=== PATIENT | male | born 1955 | race Caucasian/White ===

== ENCOUNTER 2018-05-23 03:01 | Emergency (ER) | payer OTHER ==
[2018-05-23] MEDS ORDERED: Lidocaine 2% VISCOUS* 15 ML UDC PO ONE (03:32)
[2018-05-23] MEDS ORDERED: Al Hydrox/Mg Hydrox/Simet LIQ* 30 ML UDC PO ONE (03:32)
--- NOTE | 2018-05-23 03:47 | ED ---
HPI Chest Pain - HPI Summary HPI Summary: This patient is a 62 year old M presenting to [facility] accompanied by with a chief complaint of a constant stabbing chest pain in since 16:30 on 05/22/2018. The patient rates the pain 3/10 in severity. Symptoms aggravated by deep breaths and certain positions he lays down in. Patient says that he is active but I don t exercise. He reports no PMHx and does not smoke. - History of Current Complaint Chief Complaint: EDChestWallPain Time Seen by Provider: 05/23/18 03:08 Hx Obtained From: Patient Timing: Constant Initial Severity: Moderate Current Severity: Moderate Pain Intensity: 3 Pain Scale Used: 0-10 Numeric Character: Sharp/Stabbing Aggravating Factor(s): Position - Cetain positions when he's lying down, Deep Breaths Associated Signs and Symptoms: Positive: Chest Pain - Stabbing CP - Allergy/Home Medications Allergies/Adverse Reactions: Allergies Allergy/AdvReac Type Severity Reaction Status Date / Time No Known Allergies Allergy Verified 05/23/18 03:12 Home Medications: Home Medications NK [No Home Medications Reported] 05/23/18 [History Confirmed 05/23/18] PMH/Surg Hx/FS Hx/Imm Hx Endocrine/Hematology History: Denies: Hx Diabetes Cardiovascular History: Denies: Hx Cardiac Arrest Infectious Disease History: No Infectious Disease History: Denies: Traveled Outside the [place] in Last 30 Days - Family History Known Family History: Positive: Cardiac Disease, Diabetes - Social History Occupation: Employed Full-time Lives: With Family Alcohol Use: None Substance Use Type: Reports: None Smoking Status (MU): Never Smoked Tobacco Review of Systems Negative: Fever Positive: Chest Pain - Stabbing CP aggravated by deep breaths and certain positions he lays down in All Other Systems Reviewed And Are Negative: Yes Physical Exam - Summary Physical Exam Summary: VITAL SIGNS: Reviewed. GENERAL: Patient is a well-developed and nourished MALE who is lying comfortable in the stretcher. Patient is not in any acute respiratory distress. HEAD AND FACE: No signs of trauma. No ecchymosis, hematomas or skull depressions. No sinus tenderness. EYES: PERRLA, EOMI x 2, No injected conjunctiva, no nystagmus. EARS: Hearing grossly intact. Ear canals and tympanic membranes are within normal limits. MOUTH: Oropharynx within normal limits. NECK: Supple, trachea is midline, no adenopathy, no JVD, no carotid bruit, no c- spine tenderness, neck with full ROM. CHEST: Symmetric, no tenderness at palpation LUNGS: Clear to auscultation bilaterally. No wheezing or crackles. CVS: Regular rate and rhythm, S1 and S2 present, no murmurs or gallops appreciated. ABDOMEN: Soft, non-tender. No signs of distention. No rebound no guarding, and no masses palpated. Bowel sounds are normal. EXTREMITIES: FROM in all major joints, no edema, no cyanosis or clubbing. NEURO: Alert and oriented x 3. No acute neurological deficits. Speech is normal and follows commands. SKIN: Dry and warm Triage Information Reviewed: Yes Vital Signs On Initial Exam: Initial Vitals Temp Pulse Resp BP Pulse Ox 96.9 F 75 16 145/81 99 05/23/18 03:04 05/23/18 03:04 05/23/18 03:04 05/23/18 03:04 05/23/18 03:04 Vital Signs Reviewed: Yes Diagnostics - Vital Signs Vital Signs Temp Pulse Resp BP Pulse Ox 05/23/18 03:32 70 13 96 05/23/18 03:20 73 13 130/90 96 05/23/18 03:04 96.9 F 75 16 145/81 99 - Laboratory Result Diagrams: 05/23/18 03:45 05/23/18 03:45 Lab Statement: Any lab studies that have been ordered have been reviewed, and results considered in the medical decision making process. - Radiology Chest X-Ray Radiology Interpretation Completed By: ED Physician - 05:23. No acute process. Pending official report. - EKG No standard instances Cardiac Rate: NL - 71 BPM EKG Rhythm: Sinus Rhythm EKG Interpretation: Normal axis. Normal interval. No ischemic changes. J point elevation. Chest Pain Course/Dx - Course Assessment/Plan: This patient is a 62 year old M presenting to [facility] accompanied by with a chief complaint of a constant stabbing chest pain in since 16:30 on 05/22/2018. The patient rates the pain 3/10 in severity. Symptoms aggravated by deep breaths and certain positions he lays down in. Patient says that he is active but I dont exercise. He reports no PMHx and does not smoke. Patient heart score is 1. Normal EKG. If the second troponin is negative, patient can be discharged. Patient is beings signed out by Dr. Laura to Dr. Greenwood during a shift change, pending the second troponin. - Diagnoses Provider Diagnoses: Chest pain Discharge - Sign-Out/Discharge Documenting (check all that apply): Sign-Out Patient Signing out patient TO: Kevyn Greenwood - Pending second Troponin - Discharge Plan Condition: Stable Disposition: HOME Patient Education Materials: Chest Pain (ED) Referrals: Jr Fournier MD [Primary Care Provider] - 3 Days Additional Instructions: FOLLOW UP WITH YOUR PRIMARY CARE PROVIDER WITHIN ONE WEEK FOR HIGH BLOOD PRESSURE NOTED TODAY. RETURN TO THE ED FOR ANY WORSENING OR NEW SYMPTOMS. - Billing Disposition and Condition Condition: STABLE Disposition: Home - Attestation Statements Document Initiated by Bobbi: Yes Documenting Scribe: Radames Hernandez Provider For Whom Marquiseibe is Documenting (Include Credential): Sully Laura MD Scribe Attestation: Radames Del Rio, scribed for Sully Laura MD on 05/23/18 at 0806. Scribe Documentation Reviewed: Yes Provider Attestation: The documentation as recorded by the Radames nicholas accurately reflects the service I personally performed and the decisions made by me, Sully Laura MD
[2018-05-23 03:55] LABS: ABS Basophils 0 10^3/ul (0-0.2); ABS Eosinophils 0.3 10^3/ul (0-0.6); ABS Lymphocytes 1.2 10^3/ul (1.0-4.8); ABS Neutrophils 3.9 10^3/ul (1.5-7.7); ABS Nucleated RBC 0 10^3/ul; Eosinophil % 4.5 % (0-6); Hematocrit 42 % (42-52); Hemoglobin 14.5 g/dl (14.0-18.0); Lymphocyte % 18.9 % (25-47); Mean Corpuscular HGB Conc 35 g/dl (31-36); Mean Corpuscular Hemoglobin 32 pg (27-31); Mean Corpuscular Volume 92 fL (80-94); Mean Platelet Volume 9.9 um3 (7.4-10.4); Nucleated Red Blood Cells % 0.1; Platelet Count 199 10^3/ul (150-450); Red Blood Count 4.54 10^6/ul (4.00-5.40); Red Cell Distribution Width 13 % (10.5-15); White Blood Count 6.5 10^3/ul (3.5-10.8)
[2018-05-23 04:03] LABS: INR 0.79 (0.77-1.02)
[2018-05-23 04:13] LABS: EGFR Non-African American 75.5 (>60)
--- NOTE | 2018-05-23 07:49 | ED ---
Progress - Progress Note Progress Note: Receiving sign out from Dr. Laura, pending second Troponin. Second Troponin level 0.00. Patient will be discharged home to follow up with his PCP. Re-Evaluation - Re-Evaluation First Eval Re-Evaluation Time: 07:54 Change: Improved Comment: Patient is sitting comfortably in the stretcher watching a video on Youtube. He has no other complaints. As recommended by Dr. Rodriguez, patient will be discharged and is to follow up with his PCP. It is strongly recommended to follow up, seeing as patient may benefit from a stress test. He was informed to return immediately to the ED if he develops any other symptoms. Course/Dx - Diagnoses Provider Diagnoses: Chest pain Discharge - Sign-Out/Discharge Documenting (check all that apply): Patient Departure - Discharge, Receiving Sign-Out Receiving patient FROM: Yolanda Laura - Discharge Plan Condition: Stable Disposition: HOME Patient Education Materials: Chest Pain (ED) Referrals: Jr Fournier MD [Primary Care Provider] - 3 Days Additional Instructions: FOLLOW UP WITH YOUR PRIMARY CARE PROVIDER WITHIN ONE WEEK FOR HIGH BLOOD PRESSURE NOTED TODAY. RETURN TO THE ED FOR ANY WORSENING OR NEW SYMPTOMS. - Attestation Statements Document Initiated by Scribe: Yes Documenting Scribe: Sandra Hoffman Provider For Whom Scribe is Documenting (Include Credential): Kevyn Greenwood MD Scribe Attestation: Snadra Del Rio, scribed for Kevyn Greenwood MD on 05/23/18 at 0756.
[2018-05-23 08:04] VITALS: BP 130/90
--- NOTE | 2018-05-23 08:30 | RAD ---
Indication: Chest pain. Single frontal view of the chest performed at 0409 hours was reviewed. Comparison is made with previous exam dated June 14, 2010. No mediastinal shift is noted. Heart is of normal size and configuration. Lung duran appear clear. IMPRESSION: NO ACTIVE CARDIOPULMONARY DISEASE IS NOTED. R1
== END 2018-05-23 08:07 | disposition home or self-care (01) ==
LOC: ED 03:01
DX: R07.9 Chest pain, unspecified (principal)
CPT/HCPCS: 36415; 71045; 80053; 82550; 82553; 83735; 84484; 85025; 85610; 85730; 93005; 99283; A9270-GY